=== PATIENT | male | born 1980 | race Caucasian/White ===

== ENCOUNTER 2017-11-18 12:02 | Emergency (ER) | payer OTHER, BC ==
[2017-11-18 12:40] VITALS: BP 134/82; PULSE 75; TEMP 97.8; BMI 34.2
--- NOTE | 2017-11-18 14:23 | PDOC ---
History of Present Illness - General Chief Complaint: Injury Stated Complaint: LT FINGER INJURY Time Seen by Provider: 11/18/17 12:57 History Source: Patient Exam Limitations: No Limitations - History of Present Illness Initial Comments: 11/18/17 19:21 CHIEF COMPLAINT: Left first finger nail avulsion at base HISTORY OF PRESENT ILLNESS: Patient is a 37-year-old male, while at work was using a crowbar that bounced back on him causing base of left first finger nail to avulse. Occurred: reports: just prior to arrival Severity: reports: moderate Upper Extremity Pain Location: left: thumb Method of Injury: reports: direct blow Modifying Factors: improves with: None Past History - Past Medical History Allergies/Adverse Reactions: Allergies Allergy/AdvReac Type Severity Reaction Status Date / Time No Known Allergies Allergy Verified 11/18/17 12:33 Home Medications: Ambulatory Orders Esomeprazole Magnesium [Nexium 24Hr] 20 mg PO DAILY 11/18/17 Oxycodone HCl/Acetaminophen [Percocet 5-325 mg Tablet] 1 - 2 tab PO Q4H #24 tablet MDD 12 11/18/17 Sulfamethoxazole/Trimethoprim [Bactrim Ds -] 1 tab PO BID #14 tablet 11/18/17 COPD: No DVT: No Dementia: No - Immunization History Td Vaccination: No - Suicide/Smoking/Psychosocial Hx Smoking Status: No Smoking History: Never smoked Have you smoked in the past 12 months: No Number of Cigarettes Smoked Daily: 15 Information on smoking cessation initiated: No Hx Alcohol Use: No Drug/Substance Use Hx: No Substance Use Type: None Review of Systems - Review of Systems Constitutional: No: Symptoms Reported HEENTM: No: Symptoms Reported Respiratory: No: Symptoms reported Cardiac (ROS): No: Symptoms Reported Musculoskeletal: No: Symptoms Reported, Joint Pain, Joint Swelling Integumentary: No: Erythema Neurological: No: Symptoms reported, Paresthesia, Tingling, Tremors Hematologic/Lymphatic: No: Symptoms Reported All Other Systems: Reviewed and Negative *Physical Exam - Vital Signs Last Vital Signs Temp Pulse Resp BP Pulse Ox 97.8 F 75 16 134/82 96 11/18/17 12:33 11/18/17 12:33 11/18/17 12:33 11/18/17 12:33 11/18/17 12:33 - Physical Exam General Appearance: Yes: Appropriately Dressed. No: Apparent Distress Respiratory/Chest: positive: Lungs Clear, Normal Breath Sounds Cardiovascular: positive: Regular Rhythm, Regular Rate Extremity: positive: Normal Range of Motion, Other (left first finger, nail avulsion at the base distal nail is intact bleeding noted at base.). negative: Swelling, Erythema, Inflammation Integumentary: positive: Normal Color, Dry. negative: Erythema, Swelling, Ecchymosis, Bruising Neurologic: positive: Alert, Normal Mood/Affect, Normal Response, Motor Strength 5/5 Medical Decision Making - Medical Decision Making 11/18/17 19:23 A/P: Patient here for evaluation of partial nail avulsion to the left first finger. Patient reports a large crowbar jumping back on him hitting him at the tip of the finger causing the base of the nail to fall from the cuticle. Under sterile technique, Betadine placed to cuticle base of the finger, using 1% lidocaine digital block performed with good result. Nail base able to be manipulated and replaced into the base of cuticle. Steri-Strips placed on to keep nail intact. Splint placed on finger. Patient given medication for pain, to follow up as needed. If explained to patient nail may fall off he verbalized understanding will follow-up with hand specialist. *DC/Admit/Observation/Transfer Diagnosis at time of Disposition: Nail avulsion, finger - Discharge Dispostion Disposition: HOME Condition at time of disposition: Stable Admit: No - Prescriptions Prescriptions: Oxycodone HCl/Acetaminophen [Percocet 5-325 mg Tablet] 1 - 2 tab PO Q4H #24 tablet MDD 12 Sulfamethoxazole/Trimethoprim [Bactrim Ds -] 1 tab PO BID #14 tablet - Referrals Referrals: Pedro Luis Kumar MD [Staff Physician] - - Patient Instructions Printed Discharge Instructions: DI for Nail Avulsion Injury Additional Instructions: Please monitor area for any discoloration, increased redness swelling or signs of infection Please leave Steri-Strips on until he fell off on their own Please note that you may lose your nail Can follow-up with Dr. Kumar as needed - Post Discharge Activity Forms/Work/School Notes: Back to Work
== END 2017-11-18 14:29 | disposition home or self-care (01) ==
LOC: JERFT 12:02
PROC: 0HQQXZZ Repair Finger Nail, External Approach (ICD-10-PCS; principal; 2017-11-18)
PROC: 2W3KX1Z Immobilization of Left Finger using Splint (ICD-10-PCS; 2017-11-18)
DX: S61.102A Unspecified open wound of left thumb with damage to nail, initial encounter (principal); W27.8XXA Contact with other nonpowered hand tool, initial encounter; Y93.89 Activity, other specified; Y92.63 Factory as the place of occurrence of the external cause; Y99.0 Civilian activity done for income or pay
CPT/HCPCS: 99281-25